=== PATIENT | female | born 1950 | race African-American/Black ===

== ENCOUNTER 2017-03-28 00:05 | Emergency (ER) | payer OTHER ==
[~2017-03-28] VITALS: Ht 149.9 cm; Wt 65.9 kg
[~2017-03-28 00:05] MED LIST: ALBU8.5H8 IH; AMLO-512 PO; AZIT250T9 PO; LORA1TAB3 PO
[2017-03-28] MEDS ORDERED: HYDR12.530 PO (00:24)
[2017-03-28] MEDS ORDERED: IBUP-2070 PO (00:24)
[2017-03-28] MEDS ORDERED: ALBU8HFA IH (00:24)
[2017-03-28] MEDS ORDERED: ATOR10TA69 PO (00:24)
[2017-03-28] MEDS ORDERED: PSYL0.4C PO (00:24)
[2017-03-28] MEDS ORDERED: AMLO10TA55 PO (00:24)
[2017-03-28] MEDS ORDERED: FLUT16H NS (00:24)
[2017-03-28] MEDS ORDERED: KETO10DR3 OU (00:24)
[2017-03-28] MEDS ORDERED: ASPI-1188 PO (00:24)
[2017-03-28] MEDS ORDERED: SODIUM CHLORIDE 0.9% 1,000 ML IV ONE (00:45)
[2017-03-28] MEDS ORDERED: METOCLOPRAMIDE HCL 5 MG/ML 2 ML VIAL IVP ONE (00:45)
[2017-03-28 01:25] LABS: BASOPHILS % (AUTO) 0.1 % (0.0-2.0); EOSINOPHILS % (AUTO) 0.5 % (1.0-6.0); HEMATOCRIT 41.5 % (36-46); HEMOGLOBIN 14.5 g/dL (12.0-16.0); LYMPHOCYTES # (AUTO) 0.5 K/uL (1.0-4.8); LYMPHOCYTES % (AUTO) 3.7 % (22.0-44.0); MEAN CORPUSCULAR HEMOGLOBIN 30.4 pg (26.0-34.0); MEAN CORPUSCULAR VOLUME 87 fL (80-100); MONOCYTES # (AUTO) 0.2 K/uL (0.1-1.0); MONOCYTES % (AUTO) 1.9 % (2.0-9.0); NEUTROPHILS # (AUTO) 11.8 K/uL (1.8-7.7); PLATELET COUNT (AUTO) 386 K/uL (150-450); RED BLOOD CELL COUNT(AUTO) 4.78 MIL/uL (4.00-5.20); RED CELL DISTRIBUTION WIDTH 13.8 % (11.5-14.5)
[2017-03-28 01:27] LABS: NEUTROPHILS % (AUTO) 93.8 % (40.0-70.0)
[2017-03-28 01:41] LABS: ALANINE AMINOTRANSFERASE 38 U/L (12-78); ALKALINE PHOSPHATASE 118 U/L (46-116); ANION GAP 8 mmol/L (8-16); ASPARTATE AMINOTRANSFERASE 32 U/L (15-37); BILIRUBIN,TOTAL 0.5 mg/dL (0.1-1.0); CALCIUM, TOTAL 9.3 mg/dL (8.8-10.5); CARBON DIOXIDE 30 mmol/L (22-29); CHLORIDE 99 mmol/L (98-107); CREATININE 0.84 mg/dL (0.60-1.30); GLOMERULAR FILTR. RATE CALC > 60 mL/min (>60); GLUCOSE,RANDOM 127 mg/dL (70-110); LIPASE 121 U/L (73-393); SODIUM SERUM 137 mmol/L (136-145); TOTAL PROTEIN, SERUM 8.6 g/dL (6.4-8.2); UREA NITROGEN, BLOOD 10 mg/dL (7-18)
[2017-03-28 01:46] LABS: POTASSIUM 2.7 mmol/L (3.5-5.1)
[2017-03-28] MEDS ORDERED: POTASSIUM CHL 10 MEQ/WATER 50 ML IV ONE (02:00)
[2017-03-28] MEDS ORDERED: POTASSIUM CHLORIDE 20 MEQ ER TABLET PO ONE ×2 (02:00→03:00)
[2017-03-28 03:12] VITALS: BP 130/87
== END 2017-03-28 03:15 | disposition home or self-care (01) ==
LOC: EMS 00:06
DX: K52.9 Noninfective gastroenteritis and colitis, unspecified (principal); I10 Essential (primary) hypertension; F17.210 Nicotine dependence, cigarettes, uncomplicated; Z88.5 Allergy status to narcotic agent; Z79.82 Long term (current) use of aspirin
CPT/HCPCS: 36415; 80053; 83690; 85025; 96361; 96374; 99284; J2765; J7030

== ENCOUNTER → 2017-08-07 | Emergency (ER) | payer OTHER ==
[~2017-08-07] VITALS: Ht 149.9 cm; Wt 85.5 kg
[~2017-08-07] MED LIST changes: +ACETAMINOPHEN 500 MG TABLET PO ONE; -ALBU8.5H8 IH; +ALBU8HFA IH; -AMLO-512 PO; +AMLO10TA55 PO; +ASPI-1188 PO; +ATOR10TA69 PO; -AZIT250T9 PO; +FLUT16H NS; +HYDR12.530 PO; +IBUP-2070 PO; +KETO10DR3 OU; -LORA1TAB3 PO; +PSYL0.4C PO
[2017-08-07 19:34] VITALS: BP 139/88
== END | disposition home or self-care (01) ==
LOC: EMS 15:58
DX: S93.402A Sprain of unspecified ligament of left ankle, initial encounter (principal); I10 Essential (primary) hypertension; F17.210 Nicotine dependence, cigarettes, uncomplicated; Z88.5 Allergy status to narcotic agent; X50.1XXA Overexertion from prolonged static or awkward postures, initial encounter; Y93.89 Activity, other specified; Y92.89 Other specified places as the place of occurrence of the external cause; Y99.8 Other external cause status
CPT/HCPCS: 29515; 99284

== ENCOUNTER 2018-12-02 12:21 | Emergency (ER) | payer OTHER ==
[~2018-12-02] VITALS: Ht 149.9 cm; Wt 59.1 kg
[~2018-12-02 12:21] MED LIST changes: -ACETAMINOPHEN 500 MG TABLET PO ONE; -ALBU8HFA IH; -ASPI-1188 PO; +ASPI-1522 PO; -ATOR10TA69 PO; -HYDR12.530 PO; -IBUP-2070 PO; -KETO10DR3 OU; -PSYL0.4C PO
[2018-12-02] MEDS ORDERED: KETOROLAC TROMETHAMINE 30 MG/ML VIAL IVP ONE (15:15)
[2018-12-02 15:39] LABS: BASOPHILS % (AUTO) 0.9 % (0.0-2.0); EOSINOPHILS % (AUTO) 2.4 % (1.0-6.0); HEMATOCRIT 40.7 % (36-46); HEMOGLOBIN 13.7 g/dL (12.0-16.0); LYMPHOCYTES # (AUTO) 2.1 K/uL (1.0-4.8); LYMPHOCYTES % (AUTO) 31.5 % (22.0-44.0); MEAN CORPUSCULAR HEMOGLOBIN 30.3 pg (26.0-34.0); MEAN CORPUSCULAR HGB CONC 33.6 G/dL (31.0-37.0); MEAN CORPUSCULAR VOLUME 90 fL (80-100); MONOCYTES # (AUTO) 0.5 K/uL (0.1-1.0); MONOCYTES % (AUTO) 8.2 % (2.0-9.0); NEUTROPHILS # (AUTO) 3.8 K/uL (1.8-7.7); PLATELET COUNT (AUTO) 404 K/uL (150-450); RED BLOOD CELL COUNT(AUTO) 4.52 MIL/uL (4.00-5.20); RED CELL DISTRIBUTION WIDTH 13.3 % (11.5-14.5)
[2018-12-02 15:48] LABS: ANION GAP 8 mmol/L (8-16); CALCIUM, TOTAL 9.9 mg/dL (8.8-10.5); CARBON DIOXIDE 31 mmol/L (22-29); CHLORIDE 99 mmol/L (98-107); CREATININE 0.83 mg/dL (0.60-1.30); GLOMERULAR FILTR. RATE CALC > 60 mL/min (>60); GLUCOSE,RANDOM 95 mg/dL (70-110); POTASSIUM 3.3 mmol/L (3.5-5.1); SODIUM SERUM 138 mmol/L (136-145); UREA NITROGEN, BLOOD 10 mg/dL (7-18)
[2018-12-02 15:54] LABS: ALANINE AMINOTRANSFERASE 32 U/L (12-78); ALBUMIN 4.1 g/dL (3.4-5.0); ALKALINE PHOSPHATASE 123 U/L (46-116); ASPARTATE AMINOTRANSFERASE 45 U/L (15-37); BILIRUBIN,TOTAL 0.3 mg/dL (0.1-1.0); TOTAL PROTEIN, SERUM 8.2 g/dL (6.4-8.2)
[2018-12-02 18:55] VITALS: BP 148/75
== END 2018-12-02 19:01 | disposition home or self-care (01) ==
LOC: EMS 12:22
DX: M79.604 Pain in right leg (principal); M79.605 Pain in left leg; E87.6 Hypokalemia; I10 Essential (primary) hypertension; G47.00 Insomnia, unspecified; J45.909 Unspecified asthma, uncomplicated; M19.90 Unspecified osteoarthritis, unspecified site; F17.210 Nicotine dependence, cigarettes, uncomplicated; F41.9 Anxiety disorder, unspecified; Z79.82 Long term (current) use of aspirin; Z79.899 Other long term (current) drug therapy
CPT/HCPCS: 36415; 80053; 85025; 93970; 96374; 99284; J1885

== ENCOUNTER 2023-01-23 10:41 | Emergency (ER) | payer OTHER ==
[~2023-01-23] VITALS: Ht 152.4 cm; Wt 56.8 kg
[~2023-01-23 10:41] MED LIST changes: -FLUT16H NS; +FLUT16SP NS
[2023-01-23] MEDS ORDERED: FAMO20TA8 PO (10:44)
[2023-01-23] MEDS ORDERED: LORA-999 PO (10:44)
[2023-01-23 10:55] LABS: COVID AG,FIA SOURCE NASAL SWAB
[2023-01-23 11:18] LABS: SARS-COV2 (COVID) ANTIGEN,FIA Negative (Negative)
[2023-01-23 11:47] LABS: INFLUENZA TYPE A NEGATIVE FOR TYPE A (NEGATIVE); INFLUENZA TYPE B NEGATIVE FOR TYPE B (NEGATIVE)
[2023-01-23 12:19] VITALS: TEMP 97.6
[2023-01-23] MEDS ORDERED: ALBUTEROL SULFATE 2.5 MG/0.5 ML NEB SOLUTION NEB ONE ×2 (12:30→12:55)
[2023-01-23 13:04] VITALS: PULSE 82; RESP 22; O2SAT 97
[2023-01-23 13:20] VITALS: PULSE 82; RESP 25; O2SAT 100
[2023-01-23] MEDS ORDERED: ALBU18HF12 IH (14:13)
[2023-01-23] MEDS ORDERED: BENZ-227 PO (14:13)
[2023-01-23 14:33] VITALS: BP 139/90; PULSE 92; RESP 16
== END 2023-01-23 15:03 | disposition home or self-care (01) ==
LOC: EMS 10:49
DX: J40 Bronchitis, not specified as acute or chronic (principal); F41.9 Anxiety disorder, unspecified; M19.90 Unspecified osteoarthritis, unspecified site; I10 Essential (primary) hypertension; F17.210 Nicotine dependence, cigarettes, uncomplicated; Z98.890 Other specified postprocedural states; Z20.822 Contact with and (suspected) exposure to COVID-19
CPT/HCPCS: 71045; 87804; 94640; 99284; J7613